=== PATIENT | female | born 1940 | race Caucasian/White ===

== ENCOUNTER 2018-12-30 17:48 | Observation (INO) ==
[2018-12-30] MEDS ORDERED: FUROSEMIDE 10 MG/ML VIAL IV ONE (18:10)
--- NOTE | 2018-12-30 18:15 | ERNOTE ---
Dyspnea - Date Date of Service: 12/30/18 - General Presenting Symptoms: shortness of breath, difficulty of breathing Time Seen by Provider: 12/30/18 18:02 Source: patient, family Exam Limitations: no limitations - Immun/Allergies/Home Medications Immunizations: IMMUNIZATION HX Immunizations Up to Date Yes History of Influenza Vaccine Yes Hx Pneumococcal Vaccination Yes Allergies/Adverse Reactions: Allergies azithromycin Adverse Reaction (Intermediate, Verified 12/30/18 18:05) Nausea Home Medications: HOME MEDICATIONS Aspirin 325 mg PO DAILY 05/30/18 [Last Taken Unknown] diphenhydrAMINE HCL [Benadryl] 25 mg PO PRN 05/30/18 [Last Taken Unknown] - History of Present Illness Narrative: patient presents with dyspnea on exertion, has had increased swelling of lower extremities Severity: moderate 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 Frequency of episodes: Reports: occassional episodes Modifying Factors - (Improves): Reports: nothing Modifying Factors (Worsens): Reports: activity Associated Symptoms-Dyspnea: Reports: palpitations, dizziness, lightheadedness Review of Systems - Review of Systems Constitutional: Present: See HPI EYE: Present: no symptoms reported ENT: Present: no symptoms reported Respiratory: Present: See HPI, shortness of breath, orthopnea Cardiology: Present: no symptoms reported Gastrointestinal/Abdominal: Present: no symptoms reported Genitourinary: Present: no symptoms reported Musculoskeletal: Present: no symptoms reported Skin: Present: no symptoms reported Neurological: Present: no symptoms reported Endocrine: Present: no symptoms reported Hematologic/Lymphatic: Present: no symptoms reported Psych: Present: no symptoms reported All Other Systems: All systems neg except as marked Medical History (Last Updated 12/30/18 @ 18:41 by Michelle Kaba RN) H/O: hysterectomy HTN (hypertension) History of ovarian cyst back pain Surgical History: Surgical History (Last Updated 05/30/18 @ 15:18 by Rainer Miranda RN) History of removal of ovarian cyst Social History: Preferred Language Scottish Do you have any baptist or No cultural preference? Smoking Status Never smoker Alcohol Use none Drug Use none No Social History Section defined Physical Exam - Physical Exam Narrative: patient presents with sob and edema General Appearance: Present: mild distress, anxious Head Exam: Present: normal inspection, no evidence of injury Eye Exam: Normal inspection: bilateral, PERRL: bilateral, EOMI: bilateral Ears, Nose, Throat: Present: normal ENT inspection, normal pharynx Neck: Present: normal inspection, nontender Respiratory: Present: respiratory distress, decreased breath sounds, crackles, rales Cardiovascular/Chest: Present: normal peripheral pulses, tachycardia Gastrointestinal/Abdominal: Present: normal bowel sounds, nontender, nondiste nded, soft, no organomegaly Back Exam: Present: normal inspection, normal range of motion, no CVA tenderness, no vertebral tenderness Extremity Exam: Present: pedal edema Neurological Exam: Present: alert, oriented, normal mood/affect, no motor/sensory deficits Skin Exam: Present: normal color, warm/dry Lymphatic Exam: Present: no adenopathy Progress - Date and Time Seen: Date and Time: 12/30/18 19:37 patient improved, discussed labs and x-rays, patient elects to treat at [facility], declines transfer and possible stents at present - Results and Orders Patient's Lab Results:: I have reviewed the patient's lab results. - Vital Signs Patient's Vital Signs:: I have reviewed the patient's vital signs. Vital Signs: Vital Signs 12/30/18 17:48 Temperature 37.3 C Pulse Rate 129 H Respiratory Rate 14 Blood Pressure 208/71 H O2 Sat by Pulse Oximetry 94 - EKG EKG #1 EKG: supraventricular tachycardia - X-Ray X-Ray #1 X-Ray: chest Interpretation: Interp. by nv - pulmonary edema - Progress/Reassessment Chief Complaint: Dyspnea Progress:: Improved - Transfer of Care Expected Disposition: Admit Plan - Plan Plan: to admit to hospital Departure Clinical Impression: Congestive heart failure - Departure Disposition: Still a patient Condition: Serious
[2018-12-30 18:29] LABS: Hemoglobin 14.1 gm/dL (12.5-16.0); Mean Corpuscular Hemoglobin 28.2 pg (27-31); Mean Corpuscular Hgb Conc 30.7 g/dl (32-36); Mean Platelet Volume 11.1 fl (8-12.5); Neutrophil # 9.7 K/mm3 (1.3-6.0); Neutrophil % 85.9 % (42-75.0); Platelet Count 257 K/mm3 (150-450); White Blood Count 11.3 K/mm3 (4.0-10.5)
[2018-12-30 18:48] LABS: Albumin * 3.3 gm/dl (3.4-5.0); Anion Gap 12.4 mmol/L (6.8-13.8); BUN/Creatinine Ratio 8.7 (9.0-21.6); Bilirubin, Total 0.9 mg/dL (0.0-1.1); Ca. Corrected For Albumin 10.7 mg/dL (8.4-10.2); Calcium * 10.5 mg/dL (7.9-10.9); Potassium 3.4 mmol/L (3.4-4.6); Total Protein 7.9 gm/dL (6.2-8.2)
[2018-12-30 18:49] LABS: Troponin I 0.147 ng/mL (0.00-0.10)
[2018-12-30 19:18] LABS: Urine Bilirubin Negative (NEGATIVE); Urine Blood Negative /ul (NEGATIVE); Urine Ketone Negative (NEGATIVE); Urine Nitrite Negative (NEGATIVE); Urine Protein Negative (NEGATIVE); Urine Specific Gravity 1.015 SP.GR. (1.005-1.010); Urine Urobilinogen Normal (NORMAL)
[2018-12-30 19:27] LABS: Urine Appearance Clear (CLEAR); Urine Color Pale Yellow; Urine RBC 0-5 /hpf (0-5); Urine WBC 0-5 /hpf (0-5)
[2018-12-30 19:28] LABS: Urine Bacteria TRACE; Urine Hyaline Cast 0-5 /LPF
[2018-12-30] MEDS: FUROSEMIDE 10 MG/ML VIAL IV SCH (21:32)
--- NOTE | 2018-12-30 23:37 | HP ---
Chief Complaint - Chief Complaint Date of Service: 12/30/18 Time of Service: 23:37 Chief Complaint: Shortness of breath History of Present Illness: Jocy is a 79 yo female with shortness of breath and lower extremity edema. She has elevated BNP, but no hypoxia. She denies any change in diet or medication. She does report her activity has decreased. She reports gradually worsening shortness of breath over the past few weeks, along with increasing weight. Medical History (Last Reviewed 12/30/18 @ 21:04 by Mira West RN) H/O: hysterectomy HTN (hypertension) History of ovarian cyst back pain Surgical History: Surgical History (Last Reviewed 12/30/18 @ 21:04 by Mira West RN) History of removal of ovarian cyst Family History: Family History (Last Updated 12/30/18 @ 22:24 by Mira West RN) Mother Enlarged heart Father Colon cancer Social History: Patient Lives/Resources [facility] Utilized Occupation retired Preferred Language Polish Do you have any adventism or No cultural preference? Smoking Status Never smoker Have you smoked in the past 12 No months Do you dip or chew tobacco No Alcohol Use none Drug Use none No Social History Section defined Review Of Systems (GEN) - Review of Systems Generalized/Overall Review: Absent: Weakness, Chills, Fever EENTM: Present: No Symptoms Reported Respiratory: Present: Cough, Shortness of Breath, Orthopnea. Absent: Wheezing Cardiac: Present: Edema. Absent: Chest Pain, Palpitations, Syncope Abdominal: Absent: Nausea, Vomiting Genitourinary: Present: No Symptoms Reported Musculoskeletal: Present: No Symptoms Reported Neurological: Present: No Symptoms Reported Skin: Present: Dryness Immunizations: IMMUNIZATION HX Immunizations Up to Date Yes History of Influenza Vaccine Yes Hx Pneumococcal Vaccination Yes Allergies/Adverse Reactions: Allergies Allergy/AdvReac Type Severity Reaction Status Date / Time azithromycin AdvReac Intermediate Nausea Verified 12/30/18 18:05 Home Medications: HOME MEDICATIONS Aspirin 325 mg PO DAILY 05/30/18 [Last Taken 12/30/18] Furosemide [Lasix] 40 mg PO DAILY #30 tab 12/31/18 [Last Taken Unknown] guaiFENesin/DEXTROMETHORPHAN [Robitussin-Dm] 5 ml PO Q6H PRN btl 12/31/18 [Last Taken Unknown] Exam - Exam Vital Signs: Vital Signs - Last Taken Temp 37.1 C 12/30/18 23:25 Pulse 112 H 12/30/18 23:25 Resp 20 12/30/18 23:25 BP 150/72 H 12/30/18 23:25 Pulse Ox 96 12/30/18 23:25 Constitutional: Present: Alert, Oriented x3, Cooperative, No distress ENT Exam: Present: hearing grossly normal Eye Exam: bilateral eye: normal inspection Respiratory: Present: lungs clear, normal breath sounds, no respiratory distress Cardiovascular/Chest: Present: regular rate, rhythm, no murmur Peripheral Pulses: radial (R): 2+, radial (L): 2+ Abdomen: Present: Normal bowel sounds, soft, nontender, nondistended Extremity: Present: lower extremity edema - 2+ Skin Exam: Present: no cyanosis, cool/dry Appearance: Present: appropriate appearance, appropriate insight Eye contact: Present: cooperative, good eye contact, normal speech Thoughts: Present: normal thought pattern, no apparent hallucination Diagnostic Studies: Abnormal Lab Results 12/30/18 12/30/18 12/30/18 Range/Units 18:20 18:20 18:55 WBC 11.3 H (4.0-10.5) K/mm3 MCHC 30.7 L (32-36) g/dl Immature Gran # (Auto) 0.05 H (0.000-0.0310) K/mm3 Neutrophils % 85.9 H (42-75.0) % Lymphocytes % 6.5 L (20-51) % Neutrophils # 9.7 H (1.3-6.0) K/mm3 Lymphocytes # 0.73 L (1.5-3.5) k/mm3 pO2 61.4 L (83.0-108.0) mmHg Total CO2 26.6 H (19.0-24.0) mmol/L ABG pH 7.46 H (7.35-7.45) ABG O2 Sat (Measured) 92.9 L (94.0-98.0) % Est GFR (Non-Af Amer) 43 L (60-130) mL/min BUN/Creatinine Ratio 8.7 L (9.0-21.6) Random Glucose 127 H (70-110) mg/dL Calcium Adj for Albumin 10.7 H (8.4-10.2) mg/dL ALT 12 L (19-67) U/L Troponin I 0.147 H* (0.00-0.10) ng/mL B-Natriuretic Peptide 71415 H (5-550) pg/mL Albumin 3.3 L (3.4-5.0) gm/dl Ur Epithelial Cells (0-5) /hpf Hyaline Casts (NONE) /LPF 12/30/18 Range/Units 19:12 WBC (4.0-10.5) K/mm3 MCHC (32-36) g/dl Immature Gran # (Auto) (0.000-0.0310) K/mm3 Neutrophils % (42-75.0) % Lymphocytes % (20-51) % Neutrophils # (1.3-6.0) K/mm3 Lymphocytes # (1.5-3.5) k/mm3 pO2 (83.0-108.0) mmHg Total CO2 (19.0-24.0) mmol/L ABG pH (7.35-7.45) ABG O2 Sat (Measured) (94.0-98.0) % Est GFR (Non-Af Amer) (60-130) mL/min BUN/Creatinine Ratio (9.0-21.6) Random Glucose (70-110) mg/dL Calcium Adj for Albumin (8.4-10.2) mg/dL ALT (19-67) U/L Troponin I (0.00-0.10) ng/mL B-Natriuretic Peptide (5-550) pg/mL Albumin (3.4-5.0) gm/dl Ur Epithelial Cells 5-10 H (0-5) /hpf Hyaline Casts 0-5 H (NONE) /LPF Laboratory Results WBC 11.3 K/mm3 (4.0-10.5) H 12/30/18 18:20 RBC 5.00 M/mm3 (4.2-5.4) 12/30/18 18:20 Hgb 14.1 gm/dL (12.5-16.0) 12/30/18 18:20 Hct 46.0 % (37.0-47.0) 12/30/18 18:20 MCV 92.0 fl (78-100) 12/30/18 18:20 MCH 28.2 pg (27-31) 12/30/18 18:20 MCHC 30.7 g/dl (32-36) L 12/30/18 18:20 RDW 14.0 % (11.5-14.0) 12/30/18 18:20 Plt Count 257 K/mm3 (150-450) 12/30/18 18:20 MPV 11.1 fl (8-12.5) 12/30/18 18:20 Immature Gran % (Auto) 0.40 % (0.001-0.429) 12/30/18 18:20 Immature Gran # (Auto) 0.05 K/mm3 (0.000-0.0310) H 12/30/18 18:20 Neutrophils % 85.9 % (42-75.0) H 12/30/18 18:20 Lymphocytes % 6.5 % (20-51) L 12/30/18 18:20 Monocytes % 5.7 % (0.0-9) 12/30/18 18:20 Eosinophils % 0.8 % (0.0-3.0) 12/30/18 18:20 Basophils % 0.7 % (0.0-1.0) 12/30/18 18:20 Nucleated RBC % 0.0 k/mm3 (0-1) 12/30/18 18:20 Neutrophils # 9.7 K/mm3 (1.3-6.0) H 12/30/18 18:20 Lymphocytes # 0.73 k/mm3 (1.5-3.5) L 12/30/18 18:20 Monocytes # 0.6 k/mm3 (0.0-1.0) 12/30/18 18:20 Eosinophils # 0.1 k/mm3 (0.0-0.7) 12/30/18 18:20 Absolute Basophils 0.1 k/mm3 (0.0-0.1) 12/30/18 18:20 pCO2 36.7 mmHg (32.0-45.0) 12/30/18 18:55 pO2 61.4 mmHg (83.0-108.0) L 12/30/18 18:55 HCO3 25.5 mmol/L (21.0-28.0) 12/30/18 18:55 Total CO2 26.6 mmol/L (19.0-24.0) H 12/30/18 18:55 Base Excess 1.9 mmol/L (-2.0-3.0) 12/30/18 18:55 ABG pH 7.46 (7.35-7.45) H 12/30/18 18:55 ABG O2 Sat (Measured) 92.9 % (94.0-98.0) L 12/30/18 18:55 Sodium 141 mmol/L (132-142) 12/30/18 18:20 Plasma Sodium 141 mmol/L (130-142) 12/30/18 18:20 Potassium 3.4 mmol/L (3.4-4.6) 12/30/18 18:20 Chloride 103 mmol/L (97-106) 12/30/18 18:20 Carbon Dioxide 29.0 mmol/L (24-32.6) 12/30/18 18:20 Anion Gap 12.4 mmol/L (6.8-13.8) 12/30/18 18:20 BUN 11 mg/dL (3-23) 12/30/18 18:20 Creatinine 1.27 mg/dL (0.4-1.4) 12/30/18 18:20 Est GFR (Non-Af Amer) 43 mL/min (60-130) L 12/30/18 18:20 BUN/Creatinine Ratio 8.7 (9.0-21.6) L 12/30/18 18:20 Random Glucose 127 mg/dL (70-110) H 12/30/18 18:20 Calcium 10.5 mg/dL (7.9-10.9) 12/30/18 18:20 Calcium Adj for Albumin 10.7 mg/dL (8.4-10.2) H 12/30/18 18:20 Total Bilirubin 0.9 mg/dL (0.0-1.1) 12/30/18 18:20 AST 17 U/L (0-48) 12/30/18 18:20 ALT 12 U/L (19-67) L 12/30/18 18:20 Alkaline Phosphatase 58 U/L (50-170) 12/30/18 18:20 Troponin I 0.147 ng/mL (0.00-0.10) H* 12/30/18 18:20 B-Natriuretic Peptide 52414 pg/mL (5-550) H 12/30/18 18:20 Total Protein 7.9 gm/dL (6.2-8.2) 12/30/18 18:20 Albumin 3.3 gm/dl (3.4-5.0) L 12/30/18 18:20 Urine Color Pale yellow 12/30/18 19:12 Urine Appearance Clear (CLEAR) 12/30/18 19:12 Urine pH 7.0 pH (5.0-7.0) 12/30/18 19:12 Ur Specific [place] 1.015 SP.GR. (1.005-1.010) 12/30/18 19:12 Urine Protein Negative mg/dL (NEGATIVE) 12/30/18 19:12 Urine Glucose (UA) Negative mg/dL (NEGATIVE) 12/30/18 19:12 Urine Ketones Negative mg/dL (NEGATIVE) 12/30/18 19:12 Urine Blood Negative /ul (NEGATIVE) 12/30/18 19:12 Urine Nitrate Negative (NEGATIVE) 12/30/18 19:12 Urine Bilirubin Negative mg/dl (NEGATIVE) 12/30/18 19:12 Urine Urobilinogen Normal EU/dl (NORMAL) 12/30/18 19:12 Ur Leukocyte Esterase Negative /ul (NEGATIVE) 12/30/18 19:12 Urine RBC 0-5 /hpf (0-5) 12/30/18 19:12 Urine WBC 0-5 /hpf (0-5) 12/30/18 19:12 Ur Epithelial Cells 5-10 /hpf (0-5) H 12/30/18 19:12 Urine Bacteria Trace (NONE) 12/30/18 19:12 Hyaline Casts 0-5 /LPF (NONE) H 12/30/18 19:12 Urine Culture Comments No culture indicated 12/30/18 19:12 Assessment/Plan - Assessment/Plan (1) Congestive heart failure Assessment: Jocy appears to have an acute exacerbation of CHF based on edema, shortness of breath, and elevated BNP. There is no hypoxia or other respiratory failure. Will treat with IV lasix and switch to oral lasix. If she tolerates this treatment and has no evidence of respiratory failure will plan to discharge to home tomorrow. Will evaluate bloodwork and place on telemetry to evaluate for acute [place]. Will recommend monitoring weight and salt intake. Problem: Acute Qualifiers: Heart failure chronicity: unspecified
[2018-12-31] MEDS ORDERED: PROMETHAZINE HCL/CODEINE 60 ML BTL PO PRN (01:29)
[2018-12-31] MEDS ORDERED: guaiFENesin/DEXTROMETHORPHAN 118 ML BTL PO PRN (01:38)
[2018-12-31] MEDS: FUROSEMIDE 10 MG/ML VIAL IV SCH (08:41)
--- NOTE | 2018-12-31 14:43 | DS ---
(1) Acute on chronic diastolic CHF (congestive heart failure) Problem: Acute (2) Eczema Problem: Acute Description of Stay: Jocy is a 78 yo female that was admitted due to shortness of breath and lower extremity edema. She had an elevated BNP and is suspected to have acute on chronic diastolic CHF. She was treated with IV lasix and improved. She never had hypoxia. She will be continued on oral lasix at home and will need to follow up with an echocardiogram as outpatient. She also has eczema and was educated to use hydrating lotion after bathing and hand washing. She had a troponin that was elevated in the indeterminate range but this was monitored and did not change significantly and Jocy never had chest pain or ischemic change on EKG. Procedures Performed: none Results and Findings: Lab Pending Results 12/30/18 18:20: WBC 11.3 H, RBC 5.00, Hgb 14.1, Hct 46.0, MCV 92.0, MCH 28.2, MCHC 30.7 L, RDW 14.0, Plt Count 257, MPV 11.1, Immature Gran % (Auto) 0.40, Immature Gran # (Auto) 0.05 H, Neutrophils % 85.9 H, Lymphocytes % 6.5 L, Monocytes % 5.7, Eosinophils % 0.8, Basophils % 0.7, Nucleated RBC % 0.0, Neutrophils # 9.7 H, Lymphocytes # 0.73 L, Monocytes # 0.6, Eosinophils # 0.1, Absolute Basophils 0.1 12/30/18 18:20: Sodium 141, Plasma Sodium 141, Potassium 3.4, Chloride 103, Carbon Dioxide 29.0, Anion Gap 12.4, BUN 11, Creatinine 1.27, Est GFR (Non-Af Amer) 43 L, BUN/Creatinine Ratio 8.7 L, Random Glucose 127 H, Calcium 10.5, Calcium Adj for Albumin 10.7 H, Total Bilirubin 0.9, AST 17, ALT 12 L, Alkaline Phosphatase 58, Troponin I 0.147 H*, B-Natriuretic Peptide 34496 H, Total Protein 7.9, Albumin 3.3 L 12/30/18 18:55: pCO2 36.7, pO2 61.4 L, HCO3 25.5, Total CO2 26.6 H, Base Excess 1.9, ABG pH 7.46 H, ABG O2 Sat (Measured) 92.9 L 12/30/18 19:12: Urine Color Pale yellow, Urine Appearance Clear, Urine pH 7.0, Ur Specific [place] 1.015, Urine Protein Negative, Urine Glucose (UA) Negative, Urine Ketones Negative, Urine Blood Negative, Urine Nitrate Negative, Urine Bilirubin Negative, Urine Urobilinogen Normal, Ur Leukocyte Esterase Negative, Urine RBC 0-5, Urine WBC 0-5, Ur Epithelial Cells 5-10 H, Urine Bacteria Trace, Hyaline Casts 0-5 H, Urine Culture Comments No culture indicated 12/31/18 00:20: Troponin I 0.889 H* 12/31/18 06:15: Troponin I 0.806 H* Discharge Location: Home Disposition: Home self-care Condition: Fair Discharge Activity: Activity as tolerated Discharge Diet: Low salt Referrals: Theodore Wright DO [Staff Physician] - One Week Problem Oriented Discharge Instructions to Patient/Family: CHF Patient Instructions Prescriptions (Any new or edited meds): Furosemide [Lasix] 40 mg PO DAILY #30 tab Complete Home Medications List: Complete Home Medication List: Aspirin 325 mg PO DAILY 05/30/18 Furosemide [Lasix] 40 mg PO DAILY #30 tab 12/31/18 guaiFENesin/DEXTROMETHORPHAN [Robitussin-Dm] 5 ml PO Q6H PRN btl 12/31/18 Amb Orders for Discharge: US Echocardiogram Complete * Time Frame: 1 Week, Location: Radiology
[2018-12-31 16:31] VITALS: BP 145/70
== END 2018-12-31 16:38 | disposition home or self-care (01) ==
LOC: SUPCPDRO → ER 17:48 → MS 19:36 → INTOOBSV 19:36 → MS 20:16
PROVIDERS: ADMIT Family Medicine; ATTEND Family Medicine
DX: I50.9 Heart failure, unspecified; R74.8 Abnormal levels of other serum enzymes; R06.00 Dyspnea, unspecified
CPT/HCPCS: 36415; 36600; 71020; 71046; 80053; 81001; 82803; 83519; 83880; 84484; 85025; 87040; 93005; 94760; 96374; 96375; 99285; G0378